=== PATIENT | male | born 1990 | race Caucasian/White ===

== ENCOUNTER → 2019-01-13 | Day surgery (SDC) | payer BC ==
[2019-01-12 09:02] VITALS: BMI 28.8
[~2019-01-13] MED LIST: BUPIVACAINE HCL/PF 0.5% (5 MG/ML) 30 ML VIAL IJ ONE; DEXAMETHASONE SOD PHOSPHATE/PF 10 MG/ML SDV ONE; DEXMEDETOMIDINE HCL 200 MCG/2 ML IVPB ONE; GELATIN, ABSORBABLE 100 EACH SPONGE TP ONE; GUM MASTIC/STORAX/MSAL/ALCOHOL 1 DRP DROPSBTL MC ONE; LACTATED RINGERS SOLUTION 1,000 ML IV SCH; LIDOCAINE 1%/EPI 1:100000 (20 ML MULTI DOSE VIAL) ONE; MIDAZOLAM HCL 2 MG/2 ML SINGLE DOSE VIAL ONE; ONDANSETRON 4 MG/2 ML VIAL IVPUSH PRN; ONDANSETRON 4 MG/2 ML VIAL ONE; SODIUM CHLORIDE 0.9% P/F 10 ML VIAL IJ ONE; THROMBIN (BOVINE) 5,000 UNIT VIAL TP ONE; THROMBIN (RECOMBINANT) 5,000 UNIT VIAL TP ONE; ceFAZolin SODIUM 1 GM VIAL ONE; methylPREDNISolone ACET (DEPO) 40 MG/1 ML VIAL NR ONE; methylPREDNISolone ACET (DEPO) 40 MG/1 ML VIAL ONE; oxyCODONE HCL 10 MG SUSTAINED ACTING TABLET PO ONE; oxyCODONE HCL 5 MG TABLET ONE; oxyCODONE HCL 5 MG TABLET PO PRN
--- NOTE | 2019-01-13 13:17 | HP ---
History & Physical Update - History History: No Change - Physical Physical: No Change - Assessment Assessment: No Change - Plan Plan: No Change (No Change since visit on 01/04/[address] Chavarria)
--- NOTE | 2019-01-13 15:11 | OP ---
Operative Note - Note: Operative Date: 01/13/19 Pre-Operative Diagnosis: lumbar stenosis Operation: Lumbar laminectomy L3-L5 Post-Operative Diagnosis: Same as Pre-op Surgeon: Matt Chavarria Propagation Worker: Jeanette Christopher Anesthesiologist/SERVICE OBSERVER CHIEF: Harley Medrano Anesthesia: Spinal, Local Estimated Blood Loss (mls): 15 Fluid Volume Replaced (mls): 1,100 Operative Report Dictated: Yes
[2019-01-13] MEDS: oxyCODONE HCL 5 MG TABLET PO PRN ×2 (16:35→17:40)
[2019-01-13 16:46] VITALS: TEMP 97.8
--- NOTE | 2019-01-13 17:33 | SURG ---
Surgery Profiling Machine Operator Note Profiling Machine Operator: Jeanette Christopher PA-C Date of Service: 01/13/19 Diagnosis: lumbar stenosis Procedure: Lumbar laminectomy L3-L5 I was present for the entirety of the operative procedure. For further detail, please refer to operative report. Visit type - Case Type Case Type: Scheduled - Emergency Emergency Visit: No - New patient This patient is new to me today: Yes Date on this admission: 01/13/19
[2019-01-13 18:15] VITALS: PULSE 75
--- NOTE | 2019-01-13 19:30 | OP ---
DATE OF OPERATION: 01/13/2019 PREOPERATIVE DIAGNOSIS: Spinal stenosis, L3 to L5. POSTOPERATIVE DIAGNOSIS: Spinal stenosis, L3 to L5. PROCEDURE PERFORMED: Laminectomy, L3-4 and L4-5. SURGEON: Matt Chavarria MD ADOPTION AGENT: NIDIA Martins ESTIMATED BLOOD LOSS: 50 mL. IV FLUIDS: Per Anesthesia. ANESTHESIA: Spinal/TLIP block. COMPLICATIONS: There were none. DISPOSITION: Patient brought to the PACU in stable condition. INDICATION FOR SURGERY: The patient is a 28-year-old gentleman who has been suffering from pain from his back down his legs. X-rays and MRI were completed, which noted that he has spinal stenosis at L3-4 and L4-5. He had gone through an exhaustive course of treatment for this, which included medications, physical therapy, as well as injections. Unfortunately his pain continued to persist despite all this. At this point, risks, benefits and alternatives were discussed and the patient consented to surgery. OPERATIVE NOTE: Patient was brought to the operating room by the anesthesia staff. After appropriate patient identification was performed, spinal anesthesia was given. A TLIP block was also given. Patient was able to position himself prone onto the OR table with all areas of bony prominences well-padded at this time. Two needles were placed into his back to erika off the L3 to L5 segments. An x-ray was taken to confirm this was correct. The needle was removed and 10 mL of lidocaine with epinephrine was injected into his back. At this time his back was prepped and draped in a sterile manner. At this point, time-out was completed. An incision was made from the top of L3 down to the bottom of L5. Dissection was carried down to the fascia. Fascia was split open at this time and appropriate retractors then placed in. A spinal needle was placed onto the L4-5 lamina, x-rays taken to confirm this was correct. The needle was removed and the interspinous ligament at L3-4 and L4-5 was removed. The spinous process of L4 was removed. The lamina of L4 was removed. A complete decompression was performed such that by the end of the procedure, the L4 and L5 nerve roots appeared to be well decompressed. All bleeding was well controlled at this time. Steroid was placed over the nerve root, Gelfoam was placed over that. The fascia was closed with a number 1 Vicryl suture. The subcutaneous tissues were closed with 2-0 Vicryl suture. Skin was closed with 3-0 Monocryl suture. Dermabond was applied, Steri-Strips were applied, a sterile dressing was applied. The patient was placed supine on the OR bed, brought to the PACU in stable condition. Otto SILVA/[id number]
[2019-01-13 20:05] VITALS: BP 108/63
== END | disposition home or self-care (01) ==
LOC: FASU 10:17
PROVIDERS: ATTEND Orthopaedic Surgery Orthopaedic Surgery of the Spine
PROC: 01NB0ZZ Release Lumbar Nerve, Open Approach (ICD-10-PCS; principal; 2019-01-13 13:51)
DX: M48.061 Spinal stenosis, lumbar region without neurogenic claudication (principal)
CPT/HCPCS: 72100-TC-FY; 76000-TC-FY

== ENCOUNTER 2019-04-28 08:15 | Inpatient (IN) | payer BC ==
[2019-04-25 10:49] VITALS: BMI 27.4
[2019-04-28] MEDS ORDERED: BUPIVACAINE LIPOSOME/PF (EXPAREL) 266 MG/20 ML VIAL ONE (10:36)
[2019-04-28] MEDS ORDERED: MIDAZOLAM HCL 2 MG/2 ML SINGLE DOSE VIAL ONE ×3 (10:36→12:09)
[2019-04-28] MEDS ORDERED: BUPIVACAINE HCL/PF 0.5% (5 MG/ML) 30 ML VIAL IJ ONE (10:36)
[2019-04-28] MEDS ORDERED: BUPIVACAINE HCL/PF 0.5% (5MG/ML) 10 ML VIAL ONE (11:17)
--- NOTE | 2019-04-28 11:30 | HP ---
History & Physical Update - History History: No Change - Physical Physical: No Change - Assessment Assessment: No Change - Plan Plan: No Change
[2019-04-28] MEDS ORDERED: DEXAMETHASONE SOD PHOSPHATE 4 MG/1 ML VIAL ONE (12:19)
[2019-04-28] MEDS ORDERED: ONDANSETRON 4 MG/2 ML VIAL ONE ×2 (12:19→15:18)
[2019-04-28] MEDS ORDERED: ceFAZolin SODIUM 1 GM VIAL ONE (12:25)
[2019-04-28] MEDS ORDERED: GUM MASTIC/STORAX/MSAL/ALCOHOL 1 DRP DROPSBTL MC ONE (14:09)
[2019-04-28] MEDS ORDERED: ONDANSETRON 4 MG/2 ML VIAL IVPUSH PRN (14:31)
[2019-04-28] MEDS ORDERED: ACETAMINOPHEN 1000 MG/100 ML VIAL (NON FORMULARY) IVPB ONE (14:35)
[2019-04-28] MEDS ORDERED: oxyCODONE HCL 5 MG TABLET PO PRN ×2 (14:40→14:41)
[2019-04-28] MEDS ORDERED: LACTATED RINGERS SOLUTION 1,000 ML IV SCH (14:45)
--- NOTE | 2019-04-28 14:51 | OP ---
Operative Note - Note: Operative Date: 04/28/19 Pre-Operative Diagnosis: lumbar sponlylolithesis L4-5 Operation: s/p posterior lumbar decompression, instrumentation, fusion. Transforaminal interbody lumbar L4-L5 fusion with allograft and neuromonitoring Surgeon: Matt Chavarria Medium Cycle Salesperson: Patricia Holman Anesthesiologist/SERICULTURIST: Annette Wiley Anesthesia: Spinal Estimated Blood Loss (mls): 20 Fluid Volume Replaced (mls): 700 Operative Report Dictated: Yes
[2019-04-28] MEDS ORDERED: diazePAM 2 MG TABLET ONE (14:58)
[2019-04-28] MEDS ORDERED: ACETAMINOPHEN INJECTION 100 ML IVPB ONE (14:58)
[2019-04-28] MEDS ORDERED: diazePAM 2 MG TABLET PO SCH (15:00)
[2019-04-28] MEDS ORDERED: oxyCODONE HCL 5 MG TABLET ONE ×2 (15:12→18:40)
[2019-04-28] MEDS ORDERED: CEFAZOLIN 1 GM/D5W 1 GM/50 ML BAG ONE (17:40)
[2019-04-28] MEDS ORDERED: ceFAZolin SODIUM 1 GM VIAL IVPB ONE (17:50)
--- NOTE | 2019-04-28 17:59 | SURG ---
Surgery Pump Room Operator Note Pump Room Operator: Patricia Holman PA-C Date of Service: 04/28/19 Diagnosis: lumbar sponlylolithesis L4-5 Procedure: s/p posterior lumbar decompression, instrumentation, fusion. Transforaminal interbody lumbar L4-L5 fusion with allograft and neuromonitoring I was present for the entirety of the operative procedure. For further detail, please refer to operative report. Visit type - Case Type Case Type: Scheduled - Emergency Emergency Visit: No - New patient This patient is new to me today: Yes Date on this admission: 04/28/19
[2019-04-28] MEDS ORDERED: CEFAZOLIN 1 GM/D5W 1 GM/50 ML BAG IVPB SCH (19:00)
[2019-04-28 19:10] VITALS: BP 128/63; PULSE 90; TEMP 98.4
[2019-04-28] MEDS ORDERED: ACETAMINOPHEN 325 MG TABLET (FP) PO SCH (21:00)
--- NOTE | 2019-04-29 02:22 | OP ---
DATE OF OPERATION:04/28/2019 PREOPERATIVE DIAGNOSES: 1. Spinal stenosis L4-L5 2. Reherniation L4-L5. POSTOPERATIVE DIAGNOSES: 1. Spinal stenosis L4-L5. 2. Reherniation L4-L5. PROCEDURE PERFORMED: 1. Transforaminal lumbar interbody fusion L4-L5. 2. Placement of instrumentation L4-L5. 3. Revision laminectomy L4-L5. 4. Placement of interbody cage. SURGEON: Matt Chavarria MD RADIO INTELLIGENCE OPERATOR: NIDIA Kurtz ESTIMATED BLOOD LOSS: 50 mL. INTRAVENOUS FLUIDS: Per anesthesia. ANESTHESIA: Spinal/TLIP. COMPLICATIONS: None. DISPOSITION: Patient was brought to the PACU in stable condition. INDICATIONS FOR SURGERY: Patient is a 28-year-old gentleman who has been suffering from pain in his back down is legs. X-rays and MRI were completed, which note that he had spinal stenosis at L4-L5 secondary to a reherniation. He had previously undergone a laminectomy. Patient had gone through an exhaustive course of treatment for this, which included medications, physical therapy, as well as injections. Unfortunately his pain continued to persist despite all of this. At this point, the risks, benefits, and alternatives were discussed and the patient consented to surgery. DESCRIPTION OF PROCEDURE: Patient was brought to the operating room by Anesthesia. After appropriate patient identification was performed, spinal anesthesia was given. TLIP block was also given. Patient was able to position himself prone onto the OR table with all areas of bony prominences well-padded at this time. Two needles were placed in the back and the L4 and L5 pedicles were marked off. His back was prepped and draped in the sterile manner. At this point, a timeout was completed. Incisions were made bilaterally over the L4 and L5 pedicles. Dissection was carried down to the fascia. Fascia was split open at this time and appropriate retractors were then placed in. Under C-arm guidance, trocars were advanced into both the L4 and the L5 pedicles. Through the trocars, a wire was inserted. Over the wires, tap was performed and screws were inserted. On the left-hand side, retractor blades were set up to expose the L4-L5 facet joint. The facet joint was removed. The disk was visualized. It was entered using a series of pituitaries, Kerrisons and curettes. A diskectomy was completed. The endplates were decorticated at this time. Bone graft was placed into the disk space. A cage filled with bone graft was placed in. Tulip heads were placed over the screws. The rods were measured and placed in. Caps and compression were applied. On the right-hand side the tali was measured and placed in. Caps and compression were applied. All extra instrumentation was removed at this time. AP and lateral x-rays confirmed the instrumentation to be in good position. The fascia was closed with a number 1 Vicryl suture. Subcutaneous tissues were closed with 2-0 Vicryl suture. The skin was closed with 3-0 Monocryl suture. Dermabond was applied. Steri-strips were applied. A sterile dressing was applied. Patient was placed supine on the OR bed and brought to the PACU in stable condition. Otto SILVA/[id number]
== END 2019-04-28 19:00 | disposition home or self-care (01) | DRG 460 ==
LOC: FM/S 08:17
PROVIDERS: ADMIT Orthopaedic Surgery Orthopaedic Surgery of the Spine; ATTEND Orthopaedic Surgery Orthopaedic Surgery of the Spine
PROC: 0QB00ZZ Excision of Lumbar Vertebra, Open Approach (ICD-10-PCS; 2019-04-28)
PROC: 4A11X4G Monitoring of Peripheral Nervous Electrical Activity, Intraoperative, External Approach (ICD-10-PCS; 2019-04-28)
PROC: 0SG10AJ Fusion of 2 or more Lumbar Vertebral Joints with Interbody Fusion Device, Posterior Approach, Anterior Column, Open Approach (ICD-10-PCS; principal; 2019-04-28 12:45)
DX: M48.061 Spinal stenosis, lumbar region without neurogenic claudication (principal); M51.26 Other intervertebral disc displacement, lumbar region
CPT/HCPCS: 72100-TC-FY; 94760; J0131